=== PATIENT | female | born 1990 | race Caucasian/White ===

== ENCOUNTER 2025-03-07 23:14 | Emergency (ER) | payer SELFPAY ==
[~2025-03-07] VITALS: Ht 167.6 cm; Wt 85.7 kg
[~2025-03-07 23:14] MED LIST: PYRIDIUM200 MG PO
[2025-03-07] MEDS ORDERED: SUBOXONE 8 MG-1 EACH BC (23:24)
[2025-03-07] MEDS ORDERED: MACROBID100 M1 PO (23:34)
[2025-03-07] MEDS ORDERED: PYRIDIUM200 M1 PO (23:34)
[2025-03-07] MEDS ORDERED: traMADol Hydrochloride 50 MG TAB PO ONE (23:35)
[2025-03-07] MEDS ORDERED: Ondansetron Hydrochloride 4 MG TAB PO ONE (23:35)
[2025-03-07] MEDS ORDERED: Nitrofurantoin Monohydrate/N 100 MG CAP PO ONE (23:35)
[2025-03-07 23:55] LABS: BILIRUBIN 1+ (Negative); BLOOD 2+ (Negative); CLARITY Clear (Clear); COLOR Dark Yellow (Yellow); GLUCOSE Negative (Negative); KETONE Negative (Negative); LEUKO ESTERASE 1+ (Negative); NITRITE Positive (Negative); PH 6.5 (4.5-8.0); SPECIFIC GRAVITY <= 1.005 (1.001-1.030)
[2025-03-08 00:04] LABS: BACTERIA 2+; MUCOUS TRACE; WBC 16-20 wbc/hpf (0-5)
== END 2025-03-07 23:46 | disposition home or self-care (01) ==
LOC: ED 23:14
PROVIDERS: Emergency Medicine
DX: N39.0 Urinary tract infection, site not specified (principal); Z88.2 Allergy status to sulfonamides; Z90.49 Acquired absence of other specified parts of digestive tract; Z96.22 Myringotomy tube(s) status